=== PATIENT | female | born 1975 | race Caucasian/White ===

== ENCOUNTER 2016-11-15 12:51 | Observation (INO) ==
--- NOTE | 2016-11-15 13:07 | Emergency Department Note ---
Disposition Clinical Impression: Chest pain Qualifiers: Chest pain type: precordial pain Qualified Code(s): R07.2 - Precordial pain Disposition: Admitted As Inpatient Condition: Good Referrals: Bassem Lopez MD [Primary Care Provider] - Forms: ED Satisfaction Letter Time of Disposition: 15:53 General Adult HPI - General Chief complaint: ED Shortness of Breath/Dyspnea Stated complaint: chest pressure, SOB Time Seen by Provider: 11/15/16 12:57 Source: patient Limitations: no limitations - History of Present Illness HPI Narrative: Patient presents to the emergency department for evaluation of chest discomfort and dyspnea. She states the symptoms have been present for approximately 3 days. She states that over the past 3 days she has noticed what she thought was indigestion and sternally. She states that there is been no radiation or migration that discomfort. She denies associated abdominal pain nausea vomiting or diaphoresis. She states that today she has noticed dyspnea on exertion. She denies cough or hemoptysis. She states that the chest discomfort and dyspnea seems to improve if she sits down. She does have a history of PE, she has been by hematology oncology and has been told she has no clotting disorder. She currently has an IVC filter in place as well as has been taking xarelto Pain Scale: 2 - Related Data Home Medications Medication Instructions Recorded Confirmed Cyclobenzaprine HCl 10 mg PO TID PRN 07/29/16 09/30/16 Gabapentin 600 mg PO TID 07/29/16 09/30/16 Lisinopril 40 mg PO DAILY 07/29/16 09/30/16 Metformin HCl [Metformin HCl ER] 1,000 mg PO BID 07/29/16 09/30/16 Metoprolol Succinate [Toprol Xl] 50 mg PO DAILY 07/29/16 09/30/16 Sertraline [Zoloft] 100 mg PO HS 07/29/16 09/30/16 glipiZIDE [Glucotrol] 5 mg PO DAILY 07/29/16 09/30/16 Ibuprofen [Advil] 200 mg PO Q6H PRN 09/30/16 09/30/16 Tramadol HCl [Ultram] 50 mg PO TID PRN 09/30/16 09/30/16 Previous Rx's Medication Instructions Recorded Rivaroxaban [Xarelto] 20 mg PO DAILY #30 tablet 08/01/16 OxyCODONE Immed Rel [Roxicodone 5 5 mg PO Q4HR PRN #60 tablet 09/27/16 MG] Oxycodone HCl 10 mg PO Q4HR PRN 3 Days 09/30/16 diazePAM [Valium] 5 mg PO TID 3 Days 09/30/16 Allergies Allergy/AdvReac Type Severity Reaction Status Date / Time atorvastatin [From Lipitor] AdvReac Muscle Pain Verified 09/30/16 02:48 silk AdvReac Swelling Verified 09/30/16 02:48 of Lip/Tongue/Throat Constitutional: Denies: fever, chills, weakness ENT ED: Denies: throat pain, congestion Cardiovascular: Reports: as per HPI Respiratory: Reports: dyspnea. Denies: cough, wheezes, hemoptysis Gastrointestinal: Denies: abdominal pain, nausea, vomiting, diarrhea Genitourinary: Denies: urgency, dysuria Musculoskeletal: Denies: back pain, neck pain, joint swelling Integumentary: Reports: abrasion. Denies: rash Neurological: Denies: headache, weakness, numbness, paresthesias Psychiatric: Reports: anxiety Endocrine: Denies: fatigue Past Medical History - Past Medical History Medical history: Reports: DVT, diabetes, hypertension, pulmonary embolus Surgical history: Reports: cholecystectomy, orthopedic, other, other, IVC filter Psychiatric history: Reports: anxiety STOCK SPECULATOR history: Reports: no STOCK SPECULATOR history - Social History Smoking Status: Former smoker Smokeless Tobacco Status: No Alcohol use: Reports: rarely Drug use: Reports: none Father Adopted: No (History includes hypertension) Physical Exam - General Limitations: no limitations General appearance: alert, in no apparent distress - Head Head exam: atraumatic, normocephalic - Eye Eye exam: Present: normal appearance. Absent: scleral icterus - ENT ENT exam: normal exam, normal oropharynx - Neck Neck exam: Present: normal inspection - Chest Chest inspection: Present: symmetric chest wall rise - Respiratory Respiratory exam: Present: normal lung sounds bilaterally - Cardiovascular Cardiovascular exam: Present: tachycardia, normal heart sounds. Absent: systolic murmur, diastolic murmur - Abdominal Exam Abdominal exam: Present: soft, Non-Tender, normal bowel sounds. Absent: tenderness, distention, guarding, rebound, rigidity - Extremities Exam Extremities exam: Present: normal inspection, full ROM. Absent: tenderness, calf tenderness - Neurological Exam Neurological exam: Present: alert, oriented X3, CN II-XII intact - Psychiatric Psychiatric exam: Present: normal affect, normal mood - Skin Skin exam: Present: warm, dry, intact Course Vital Signs Temperature 96.6 F L 11/15/16 12:52 Pulse Rate 110 11/15/16 12:52 Respiratory Rate 18 11/15/16 12:52 Blood Pressure 152/97 11/15/16 12:52 O2 Sat by Pulse Oximetry 96 11/15/16 12:52 Temperature 96.6 F L 11/15/16 13:23 Pulse Rate 107 11/15/16 13:23 Respiratory Rate 14 11/15/16 13:23 Blood Pressure 156/102 11/15/16 13:23 O2 Sat by Pulse Oximetry 95 11/15/16 13:23 Oxygen Delivery Oxygen Delivery Room Air Medical Decision Making - MDM Narrative Medical decision making narrative: Patient will be admitted to the hospitalist service for serial cardiac enzymes and further evaluation and treatment of her symptoms. - Lab Data Lab results reviewed: Yes I reviewed the patient's lab results. Result diagrams: 11/15/16 13:15 11/15/16 13:15 Lab Results 11/15/16 11/15/16 11/15/16 Range/Units 13:15 13:15 13:15 WBC (4.3-11.1) K/mcL RBC (3.82-4.97) M/mcL Hgb (11.5-15.4) g/dL Hct (35.3-44.9) % MCV (83.0-100.0) fL MCH (28.0-33.3) pg MCHC (31.6-35.5) g/dL RDW (11.5-14.5) % Plt Count (140-400) K/mcL MPV (9.4-12.4) fL Immature Gran % (0-4) % Seg Neutrophils % % Lymphocytes % % Monocytes % % Eosinophils % % Basophils % % Neutrophils # (1.6-8.9) K/mcL Lymphocytes # (0.6-4.6) K/mcL Monocytes # (0.0-1.3) K/mcL Eosinophils # (0.0-0.6) K/mcL Basophils # (0.0-0.2) K/mcL PT 15.4 H (9.4-12.1) Seconds INR 1.4 APTT 36.2 H (26.0-36.0) Seconds Sodium (136-145) mEq/L Potassium (3.5-4.5) mEq/L Chloride (98-109) mEq/L Carbon Dioxide (19-29) mEq/L BUN (7-20) mg/dL Creatinine (0.57-1.11) mg/dL Est GFR ( Amer) (> 60) Est GFR (Non-Af Amer) (> 60) BUN/Creatinine Ratio (6-26) Glucose (70-99) mg/dL Calculated Osmolality (280-300) Calcium (8.6-10.8) mg/dL Total Bilirubin 0.4 (0.2-1.2) mg/dL Direct Bilirubin 0.1 (0.0-0.5) mg/dL Indirect Bilirubin 0.3 (0.0-1.2) mg/dL AST 18 (5-34) Units/L ALT 26 (0-55) Units/L Alkaline Phosphatase 84 (38-126) Units/L Troponin I (0-0.03) ng/mL B-Natriuretic Peptide < 10 (0-100) pg/mL Serum Total Protein 6.9 (6.0-8.3) g/dL Albumin 3.7 (3.5-5.0) g/dL Globulin 3.2 (2.4-3.5) g/dL Albumin/Globulin Ratio 1.2 (1.1-2.2) Lipase 31 (8-78) Units/L 11/15/16 11/15/16 11/15/16 Range/Units 13:15 13:15 13:15 WBC 7.1 (4.3-11.1) K/mcL RBC 4.72 (3.82-4.97) M/mcL Hgb 14.0 (11.5-15.4) g/dL Hct 42.4 (35.3-44.9) % MCV 89.8 (83.0-100.0) fL MCH 29.7 (28.0-33.3) pg MCHC 33.0 (31.6-35.5) g/dL RDW 12.7 (11.5-14.5) % Plt Count 299 (140-400) K/mcL MPV 9.6 (9.4-12.4) fL Immature Gran % 0.3 (0-4) % Seg Neutrophils % 61.3 % Lymphocytes % 31.1 % Monocytes % 5.2 % Eosinophils % 1.7 % Basophils % 0.4 % Neutrophils # 4.3 (1.6-8.9) K/mcL Lymphocytes # 2.2 (0.6-4.6) K/mcL Monocytes # 0.4 (0.0-1.3) K/mcL Eosinophils # 0.1 (0.0-0.6) K/mcL Basophils # 0.0 (0.0-0.2) K/mcL PT (9.4-12.1) Seconds INR APTT (26.0-36.0) Seconds Sodium 137 (136-145) mEq/L Potassium 3.7 (3.5-4.5) mEq/L Chloride 101 (98-109) mEq/L Carbon Dioxide 26 (19-29) mEq/L BUN 9 (7-20) mg/dL Creatinine 0.86 (0.57-1.11) mg/dL Est GFR ( Amer) > 60 (> 60) Est GFR (Non-Af Amer) > 60 (> 60) BUN/Creatinine Ratio 10 (6-26) Glucose 249 H (70-99) mg/dL Calculated Osmolality 291 (280-300) Calcium 9.9 (8.6-10.8) mg/dL Total Bilirubin (0.2-1.2) mg/dL Direct Bilirubin (0.0-0.5) mg/dL Indirect Bilirubin (0.0-1.2) mg/dL AST (5-34) Units/L ALT (0-55) Units/L Alkaline Phosphatase (38-126) Units/L Troponin I 0.00 (0-0.03) ng/mL B-Natriuretic Peptide (0-100) pg/mL Serum Total Protein (6.0-8.3) g/dL Albumin (3.5-5.0) g/dL Globulin (2.4-3.5) g/dL Albumin/Globulin Ratio (1.1-2.2) Lipase (8-78) Units/L ITS Impressions Chest CTA 11/15/16 12:58 IMPRESSION: No evidence of pulmonary embolism or acute pulmonary abnormality. Pulmonary emboli that were present on previous exam of 07/29/2016 have resolved D/ / Edenilson Sin MD / Edenilson Sin MD Interpreting Provider: Edenilson Sin MD - Radiology Data Radiology results reviewed: Yes I reviewed the patient's radiology results. - EKG Data EKG #1 EKG attestation: Yes I reviewed and interpreted this EKG. EKG shows normal: sinus rhythm Rate: tachycardia Rhythm: NSR (Sinus tachycardia. Nonspecific changes without evidence of acute ST segment or T-wave changes.)
[2016-11-15 13:37] LABS: Basophils % 0.4 %; Eosinophils # 0.1 K/mcL (0.0-0.6); Eosinophils % 1.7 %; Hematocrit 42.4 % (35.3-44.9); Immature Granulocytes % 0.3 % (0-4); Lymphocytes # 2.2 K/mcL (0.6-4.6); Lymphocytes % 31.1 %; Mean Corpuscular Hemoglobin 29.7 pg (28.0-33.3); Mean Corpuscular Volume 89.8 fL (83.0-100.0); Mean Platelet Volume 9.6 fL (9.4-12.4); Monocytes # 0.4 K/mcL (0.0-1.3); Monocytes % 5.2 %; Neutrophils # 4.3 K/mcL (1.6-8.9); Platelet Count 299 K/mcL (140-400); Red Blood Count 4.72 M/mcL (3.82-4.97); Red Cell Distribution Width 12.7 % (11.5-14.5); Segmented Neutrophils % 61.3 %
[2016-11-15 13:43] LABS: INR 1.4; Prothrombin Time 15.4 Seconds (9.4-12.1)
[2016-11-15 13:46] LABS: Activated Partial Thrombo Time 36.2 Seconds (26.0-36.0)
[2016-11-15 13:54] LABS: BUN/Creatinine Ratio 10 (6-26); Blood Urea Nitrogen 9 mg/dL (7-20); Calcium 9.9 mg/dL (8.6-10.8); Carbon Dioxide 26 mEq/L (19-29); Chloride 101 mEq/L (98-109); Glucose 249 mg/dL (70-99); Osmolality,Calculated 291 (280-300); Potassium 3.7 mEq/L (3.5-4.5); Sodium 137 mEq/L (136-145); eGFR For African Americans > 60 (> 60); eGFR For Non-African Americans > 60 (> 60)
[2016-11-15 13:55] LABS: Albumin 3.7 g/dL (3.5-5.0); Albumin/Globulin Ratio 1.2 (1.1-2.2); Bilirubin,Direct 0.1 mg/dL (0.0-0.5); Bilirubin,Indirect 0.3 mg/dL (0.0-1.2); Bilirubin,Total 0.4 mg/dL (0.2-1.2); Globulin 3.2 g/dL (2.4-3.5); Total Protein 6.9 g/dL (6.0-8.3)
[2016-11-15] MEDS ORDERED: Naloxone 0.4 MG/ML INJ IVP PRN (15:48)
[2016-11-15] MEDS ORDERED: Aspirin 81 MG TAB.CHEW PO ONE (15:52)
[2016-11-15] MEDS ORDERED: traMADol 50 MG TABLET PO PRN (18:27)
[2016-11-15] MEDS ORDERED: *HR* OxyCODONE Immed Rel 5 MG TABLET PO PRN (18:27)
[2016-11-15] MEDS ORDERED: Ibuprofen 400 MG TABLET PO PRN (18:27)
[2016-11-15] MEDS ORDERED: NON-FORMULARY MEDICATION 1 EACH EACH (Oxycodone Hcl [Oxycodone Hcl] 10 MG) PO PRN (18:27)
[2016-11-15 19:21] VITALS: BP 134/84
[2016-11-15] MEDS ORDERED: traMADol 50 MG TABLET PO SCH (21:00)
[2016-11-15] MEDS ORDERED: Gabapentin 300 MG CAPSULE PO SCH ×2 (21:00)
[2016-11-15] MEDS ORDERED: diazePAM 5 MG TABLET PO SCH ×2 (21:00)
[2016-11-15] MEDS ORDERED: *HR* Metformin 500 MG TABLET PO SCH (21:00)
[2016-11-16] MEDS ORDERED: Lisinopril 20 MG TABLET PO SCH (09:00)
[2016-11-16] MEDS ORDERED: Metoprolol XL (24 HR) Succ 50 MG TAB.ER.24H PO SCH (09:00)
[2016-11-16] MEDS ORDERED: *HR* GlipiZIDE 5 MG TABLET PO SCH (09:00)
[2016-11-16] MEDS ORDERED: *HR* Rivaroxaban 10 MG TABLET PO SCH (17:00)
--- NOTE | 2016-11-19 16:33 | Electrocardiograph Report ---
[address] [place], [place] [address] Test Date: 2016-11-15 Pat Name: Kim Nix Department: [id number] Room: [facility] Gender: F State Historical [employer] Director: [id number] : 1975 Requested By: Julio Cesar King Order Number: [id number] Reading MD: Opal Bennett Measurements Intervals [place] Rate: 105 P: 54 [place]: 145 QRS: 28 QRSD: 96 T: -8 QT: 345 QTc: 406 Interpretive Statements SINUS TACHYCARDIA NONSPECIFIC T-WAVE ABNORMALITY ABNORMAL RHYTHM ECG Electronically Signed On 11-19-2016 16:32:01 EDT by Opal Bennett
--- NOTE | 2016-11-20 17:39 | Internal Med Progress Note ---
Date of Encounter: 11/20/16 Time of Encounter: 17:35 - Subjective Interval history: Patient left AMA before being seen by me. - Constitutional Vitals: Temp Pulse Resp BP Pulse Ox 98.4 F 86 16 134/84 98 11/15/16 19:00 11/15/16 19:00 11/15/16 19:00 11/15/16 19:00 11/15/16 19:00 Internal Medicine: Result - Labs CBC & Chem 7: 11/15/16 13:15 11/15/16 13:15 - ABG Interpretation ABG results: PT/INR, D-dimer PT 15.4 Seconds (9.4-12.1) H 11/15/16 13:15 - VTE Reasons for not Prescribing Prophylaxis: Not indicated-Anticoagulated or INR therapeutic Consult Discharge Plan - Plan Referrals: Bassem Lopez MD [Primary Care Provider] - 1 week
== END 2016-11-15 21:45 | disposition left against medical advice (07) ==
LOC: EMEROOPIK 12:51 → INPPIK 12:51
PROVIDERS: ADMIT Internal Medicine; ATTEND Internal Medicine